=== PATIENT | male | born 1960 | race Caucasian/White ===

== ENCOUNTER 2018-11-25 14:31 | Emergency (ER) | payer OTHER ==
--- NOTE | 2018-11-25 14:34 | EDPHY ---
H & P Time Seen by Provider: 11/25/18 14:33 HPI/ROS: CHIEF COMPLAINT: Right facial weakness HISTORY OF PRESENT ILLNESS: The patient presents to the ED with a 1 day history of right facial weakness. The patient denies any acute numbness, diplopia, peripheral symptoms of numbness or weakness, history of fall, headache or additional neurologic complaints. The patient has had some very mild periorbital erythema over the past several days. The patient denies any neck pain. The patient denies significant past medical history. The patient does not see a primary care provider. REVIEW OF SYSTEMS: A comprehensive 10 point review of systems is otherwise negative aside from elements mentioned in the history of present illness. Source: Patient Exam Limitations: No limitations - Medical/Surgical History PMH: Past medical history: Healthy - Family History Significant Family History: No pertinent family hx - Physical Exam Exam: General Appearance: Alert, no distress Eyes: Minimal periorbital erythema noted on the right face, no proptosis, no fluctuance, EOMI ENT, Mouth: Mucous membranes moist Respiratory: There are no retractions, lungs are clear to auscultation Cardiovascular: Regular rate and rhythm Gastrointestinal: Abdomen is soft and nontender, no masses, bowel sounds normal Neurological: 5/5 strength noted all 4 extremities, cranial nerves 2-12 intact with the exception of a obvious right cranial nerve 7 palsy Skin: Warm and dry, no rashes Musculoskeletal: Neck is supple nontender Extremities: symmetrical, full range of motion Psychiatric: Patient is oriented X 3, there is no agitation Constitutional: Initial Vital Signs Temperature (C) 36.4 C 11/25/18 14:34 Heart Rate 87 11/25/18 14:34 Respiratory Rate 18 11/25/18 14:34 Blood Pressure 187/108 H 11/25/18 14:34 O2 Sat (%) 98 11/25/18 14:34 O2 Delivery Mode Room Air Allergies/Adverse Reactions: No Known Allergies Allergy (Unverified 11/25/18 14:34) Home Medications: Medication Instructions Recorded Cephalexin [Keflex] 500 mg PO QID #28 cap 11/25/18 Valacyclovir HCl [Valtrex] 1,000 mg PO TID #21 tab 11/25/18 predniSONE [prednisone 20mg (RX)] 3 tab PO DAILY #21 tab 11/25/18 Medical Decision Making ED Course/Re-evaluation: Patient presents the emergency department with a Lopez's palsy a which began after a very mild right periorbital cellulitis. The patient is neurologically intact. There is nothing to suggest a central 7 cranial nerve lesion. The patient will be treated with prednisone and Valtrex. He is also given a prescription for Keflex for very mild periorbital cellulitis. Patient was instructed to follow up with our on-call neurologist for a recheck of his Lopez's palsy in the next week. Patient is instructed to return to the ED for the development of any acute headache, peripheral complaints of numbness or weakness or other concerns. Differential Diagnosis: Differential diagnosis considered includes Lopez palsy, periorbital cellulitis, orbital cellulitis, stroke, TIA Departure - Departure Disposition: Home, Routine, Self-Care Clinical Impression: Lopez's palsy, Periorbital cellulitis of right eye Condition: Good Instructions: Lopez Palsy (ED) Additional Instructions: 1. Please take steroids and antiviral medications as directed for Lopez's palsy. 2. Please take antibiotics as directed for very mild periorbital cellulitis. 3. Please schedule a follow-up appointment for a recheck with a neurologist you have been referred to. 4. Return to the emergency department for any acute numbness, weakness involving her arms or legs, difficulty with speech, severe headache or other concerns. 5. I do recommend using Lacri-Lube ointment in your right eye to prevent dryness. This is available [id number] at a grocery or drug stores. Referrals: Pasha Mercer MD [Medical Doctor] - As per Instructions Prescriptions: Cephalexin [Keflex] 500 mg PO QID #28 cap predniSONE [prednisone 20mg (RX)] 3 tab PO DAILY #21 tab Valacyclovir HCl [Valtrex] 1,000 mg PO TID #21 tab
[2018-11-25 15:21] VITALS: BP 148/90
== END 2018-11-25 15:21 | disposition home or self-care (01) ==
DX: G51.0 Bell's palsy (principal); H00.033 Abscess of eyelid right eye, unspecified eyelid